=== PATIENT | male | born 1945 | race Caucasian/White ===

== ENCOUNTER 2017-06-03 11:21 | Outpatient (CLI) | payer MEDICARE, BC ==
--- NOTE | 2017-06-03 14:54 | CT ---
EXAM: CT ANGIOGRAM OF THE NECK: HISTORY: Right carotid stenosis. Decrease sound in the right carotid artery. COMPARISON: None. TECHNIQUE: CT angiogram of the neck is performed in the axial plane. Three-dimensional reformatted images are s ubmitted for interpretation. FINDINGS: Visualized brain parenchyma is unremarkable. Mucosal thickening of the left maxillary sinus is noted. There is extensive periodontal disease. The aerodigestive tract is patent. No mucosal abnormality. Epiglottis has a normal caliber. Preepi glottic fat is preserved. Symmetric attenuation of the parotid and submandibular glands. The thyroid gland is unremarkable. Symmetric attenuation of the sternocleidomastoid muscles. There are scattered nonspecific, nonenlarged bilateral soft tissue neck lymph nodes. Cervical spine vertebral body height is maintained. There is no fracture. There are varying degrees of central canal stenosis and foraminal narrowing on the basis of degenerative change. Upper mediastinum demonstrates nonspecific lymph nodes. There is adequate contrast opacification of the central pulmonary arteries without filling defect. Extensive emphysematous and bullous change of the lung parenchyma. Focal area of irregular parenchym al attenuation in the right lung apex may represent a scar measuring 1.4 cm x 1.2 cm. Other etiologi es cannot be excluded. Limited evaluation. CT ANGIOGRAM: There is atherosclerosis of the visualized aorta. RIGHT CAROTID: There is atherosclerotic disease at the origin of the right carotid artery. There is mild narrowing. The right common carotid artery demonstrates patency. There is calcified plaque in the right carot id bifurcation. There is short-segment severe stenosis with essentially a string sign in the proxima l right internal carotid artery. Mid to distal right internal carotid artery has appropriate enhance ment and luminal diameter. LEFT CAROTID: There is atherosclerosis at the origin of the left carotid artery. Left common carotid artery demons trates mild atherosclerotic disease. The left carotid bifurcation also has mild atherosclerotic dise ase. Mid to distal left internal carotid artery has appropriate enhancement and luminal diameter. VERTEBRAL ARTERIES: The origin of the right vertebral artery is patent. There is mild narrowing of the origin of the lef t vertebral artery. Both cervicovertebral arteries are patent throughout their course in the neck. Vertebral arteries are essentially codominant. Bilateral subclavian arteries are normal in caliber. IMPRESSION: High-grade short-segment stenosis is essentially a string sign in the proximal right internal carotid artery. CODE T POS: [facility]
== END 2017-06-03 11:22 | disposition home or self-care (01) ==
LOC: CT 11:21
PROVIDERS: ATTEND Thoracic Surgery (Cardiothoracic Vascular Surgery)
DX: I65.21 Occlusion and stenosis of right carotid artery (principal)
CPT/HCPCS: 70498

== ENCOUNTER 2017-06-08 06:05 | Inpatient (IN) | payer MEDICARE, BC ==
[2017-06-08] MEDS ORDERED: CEFAZOLIN/Water 2 GM/20 ML SYRINGE ONE (06:23)
[2017-06-08] MEDS ORDERED: Protamine Sulfate 50 MG/5 ML VIAL ONE (06:39)
[2017-06-08] MEDS ORDERED: Heparin 5,000 UNITS/ML VIAL ONE (06:39)
[2017-06-08 06:40] LABS: Mean Platelet Volume 7.4 fL (7.4-10.4); White Blood Cell (WBC) Count 8.4 thou/uL (4.8-10.8)
[2017-06-08] MEDS ORDERED: Fentanyl 250 MCG/5 ML VIAL ONE (06:56)
[2017-06-08 07:04] LABS: Anion Gap 14 mmol/L (10-20); BUN (Urea Nitrogen) 17 mg/dL (8.4-25.7); Calc. Creatinine Clearance 0 mL/min (70-130); Calcium 10.2 mg/dL (7.8-10.44); Carbon Dioxide 26 mmol/L (23-31); Chloride 103 mmol/L (98-107); Estimated GFR-MDRD 65
[2017-06-08] MEDS ORDERED: Midazolam HCl 2 mg/2 ml Vial ONE (07:13)
[2017-06-08] MEDS ORDERED: Fentanyl 100 MCG/2 ML VIAL ONE (09:58)
--- NOTE | 2017-06-08 10:01 | OP ---
DATE OF PROCEDURE: 06/08/2017 PREOPERATIVE DIAGNOSIS: Critical right carotid artery stenosis. SURGEON: Ammon Booker M.D. TREE PULLER: None. POSTOPERATIVE DIAGNOSIS: Critical right carotid artery stenosis. SPONGE AND NEEDLE COUNTS: Correct. ANESTHESIA: General. PROCEDURE: Right carotid endarterectomy with bovine pericardium patch angioplasty. FINDINGS AT OPERATION: Near occlusive plaque involving the bulb and proximal ICA. DESCRIPTION OF OPERATION: The patient was taken to the operating room. Following the induction of general endotracheal anesthesia, the patient was prepped and draped in usual sterile fashion. Skin incision was made parallel to the anterior border of the sternocleidomastoid muscle and deepened through the subcutaneous tissues and platysma. Carotid sheath was entered, identifying the vagus nerve in its proper posterior position. Isolation of the CCA, ECA, and ICA was performed. Hypoglossal nerve was visualized, however, not manipulated. Heparin dose was given. Fine vascular clamps were applied to the above-mentioned vessels. Arteriotomy was created extending across the bulb and ICA to a point above the plaque. The #10 shunt was employed. Endarterectomy was then performed in standard fashion. An excellent feathering point was achieved in the ICA, however, posterior intima was tacked with three 7-0 Prolene sutures. Meticulous attention was made to retrieving all residual debris including before and after irrigation with heparinized saline. The arteriotomy was then closed with the bovine pericardium patch and running 6-0 Prolene suture. Prior to securing the patch the shunt was removed, the ICA backflushed, and the site again irrigated with heparinized saline. Clamps were removed from the ECA, CCA, and ICA in that order. Heparin was partially reversed with protamine. Copious irrigation was performed. Meticulous hemostasis was assured. The wound was then closed in layers with running 2-0 Vicryl sutures and skin closed with a 4-0 Vicryl subcuticular stitch. Dermabond was applied. The patient was awakened and taken to the recovery room. Blood loss negligible. MTDD
[2017-06-08] MEDS ORDERED: HYDROcodone/Acetaminophen 5/325 mg Tablet PO PRN ×2 (12:10)
[2017-06-08] MEDS ORDERED: hydrALAZINE 20 MG/ML VIAL SLOW IVP PRN (12:10)
[2017-06-08] MEDS ORDERED: HYDROcodone/Acetaminophen 10/325 mg Tablet PO PRN (12:10)
[2017-06-08] MEDS ORDERED: Phenylephrine 10 MG/NS 250 ML 250 ML IVPB PRN (12:10)
[2017-06-08] MEDS ORDERED: Promethazine HCl 25 MG/ML VIAL IM PRN (12:10)
[2017-06-08] MEDS ORDERED: Fentanyl 100 MCG/2 ML VIAL SLOW IVP PRN ×2 (12:10)
[2017-06-08] MEDS ORDERED: Ondansetron HCl/PF 4 MG/2 ML Vial IVP PRN (12:10)
[2017-06-08] MEDS ORDERED: Acetaminophen 325 MG TAB PO PRN (12:10)
[2017-06-08] MEDS ORDERED: Nitroglycerin 50 MG/250 ML BOT 250 ML IVPB PRN (12:10)
[2017-06-08] MEDS ORDERED: DOPamine 400 MG/D5W 250 ML 250 ML IVPB PRN (12:10)
[2017-06-08] MEDS ORDERED: Morphine PF 1 MG/ML SYR IVP PRN (12:21)
[2017-06-08] MEDS ORDERED: Morphine 4 MG/ML VIAL SLOW IVP PRN (12:30)
[2017-06-08] MEDS ORDERED: Clopidogrel Bisulfate 75 MG TAB PO SCH (12:30)
[2017-06-08] MEDS: CEFAZOLIN/Water 2 GM/20 ML SYRINGE SLOW IVP SCH ×2 (12:43→20:00)
[2017-06-08] MEDS: Sodium Chloride 0.9% 1,000 ML IV SCH (12:44)
[2017-06-08 12:52] VITALS: BMI 23.3
[2017-06-08] MEDS ORDERED: Ondansetron HCl/PF 4 MG/2 ML Vial ONE (13:33)
[2017-06-08] MEDS ORDERED: Glycopyrrolate 0.2 MG/ML 5 ML SYRINGE ONE (13:33)
[2017-06-08] MEDS ORDERED: Lidocaine 1% PF 5 ML VIAL ONE (13:33)
[2017-06-08] MEDS ORDERED: Vecuronium 10 MG VIAL ONE (13:33)
[2017-06-08] MEDS ORDERED: ePHEDrine/0.9% NaCl/PF SYRINGE 50 mg/10 ml ONE (13:33)
[2017-06-08] MEDS ORDERED: PHENYLEPHRINE-NS 100 MCG/ML 10 ML SYRINGE ONE (13:33)
[2017-06-08] MEDS ORDERED: Propofol 200 MG/20 ML VIAL ONE (13:33)
[2017-06-08] MEDS ORDERED: Heparin 10,000 UNITS/ 10 ML VIAL ONE (13:33)
[2017-06-08] MEDS ORDERED: ALPRAZolam 0.25 MG TAB PO PRN (14:03)
[2017-06-08] MEDS: Gabapentin 300 MG CAP PO SCH (20:00)
[2017-06-08] MEDS: Carvedilol 6.25 MG TAB PO SCH (20:00)
[2017-06-08] MEDS ORDERED: Latanoprost 0.005% Ophth Soln 2.5 ml Bottle EA EYE SCH (21:00)
[2017-06-08] MEDS ORDERED: Atorvastatin Calcium 40 MG TAB PO SCH (21:00)
[2017-06-09] MEDS: Sodium Chloride 0.9% 1,000 ML IV SCH (01:45)
[2017-06-09] MEDS: CEFAZOLIN/Water 2 GM/20 ML SYRINGE SLOW IVP SCH (04:42)
[2017-06-09 07:38] VITALS: TEMP 97.6
[2017-06-09] MEDS: Carvedilol 6.25 MG TAB PO SCH (08:42)
[2017-06-09] MEDS: Gabapentin 300 MG CAP PO SCH (08:43)
[2017-06-09 08:44] VITALS: BP 114/55
[2017-06-09] MEDS ORDERED: Bisoprolol Fumarate/HCTZ 5 mg/6.25 mg Tablet PO SCH (09:00)
[2017-06-09] MEDS ORDERED: Clopidogrel Bisulfate 75 MG TAB PO SCH (09:00)
[2017-06-09] MEDS ORDERED: Ubidecarenone 50 MG CAP PO SCH (09:00)
[2017-06-09] MEDS ORDERED: Fish Oil 1,000 MG CAP PO SCH (09:00)
--- NOTE | 2017-06-09 11:48 | DIS ---
REASON FOR ADMISSION: Right carotid endarterectomy. CLINICAL RESUME: The patient is a 71-year-old male found to have a critical right carotid artery stenosis following the detection of a right carotid bruit. Carotid ultrasound and CTA demonstrated the critical right carotid lesion. Recommendation was made to proceed with right CEA. Yesterday, the patient was admitted and underwent right CEA with bovine pericardium patch angioplasty. See operative report for details. His postoperative course has been unremarkable and as of this morning, he was considered stable for discharge. Follow up will be arranged in our office in 2 weeks or sooner p.r.n. DIET: Cardiac prudent. ACTIVITY: Light for the next 4-5 days. WOUND CARE: As instructed. DISCHARGE MEDICATIONS: The patient was to resume his complete home regimen without change. New medication; Plavix 75 mg daily for 1 month. MTDD
== END 2017-06-09 11:30 | disposition home or self-care (01) | DRG 39 ==
LOC: EDSTATUS 06:05 → SURG A 06:05 → CCU 11:30
PROVIDERS: ADMIT Thoracic Surgery (Cardiothoracic Vascular Surgery); ATTEND Thoracic Surgery (Cardiothoracic Vascular Surgery)
PROC: 03CH0ZZ Extirpation of Matter from Right Common Carotid Artery, Open Approach (ICD-10-PCS; principal; 2017-06-08)
PROC: 03UJ0KZ Supplement Left Common Carotid Artery with Nonautologous Tissue Substitute, Open Approach (ICD-10-PCS; 2017-06-08)
DX: I65.21 Occlusion and stenosis of right carotid artery (principal); I10 Essential (primary) hypertension; I71.4 Abdominal aortic aneurysm, without rupture; I25.10 Atherosclerotic heart disease of native coronary artery without angina pectoris; I70.213 Atherosclerosis of native arteries of extremities with intermittent claudication, bilateral legs; E78.2 Mixed hyperlipidemia; H40.9 Unspecified glaucoma; I25.2 Old myocardial infarction; Z82.49 Family history of ischemic heart disease and other diseases of the circulatory system; Z80.9 Family history of malignant neoplasm, unspecified
CPT/HCPCS: 80048; 85027; 93005; 93010; 94640; J1642; J1644; J2001; J2250; J2405; J2704; J2720; J3010; J7620

== ENCOUNTER 2018-07-16 06:18 | Outpatient (CLI) | payer MEDICARE, BC ==
[2018-07-16 10:38] LABS: #Basophils 0.1 thou/uL (0.0-0.2); #Eosinphils 0.2 thou/uL (0.0-0.7); #Lymphocytes 2.5 thou/uL (1.20-3.40); #Monocytes 0.6 thou/uL (0.11-0.59); #Neutrophils 3.4 thou/uL (1.40-6.50); %Basophils 0.8 % (0.0-1.0); %Eosinophils 3.6 % (0.0-10.0); %Lymphocytes 36.4 % (21.0-51.0); %Monocytes 9.1 % (0.0-10.0); %Neutrophils 50.1 % (42.0-75.0); Hemoglobin 14.2 g/dL (14.0-18.0); Mean Corpuscular HGB CONC 33.6 g/dL (32.0-36.0); Mean Corpuscular Hemoglobin 30.3 pg (27.0-31.0); Mean Corpuscular Volume 90.1 fL (78.0-98.0); Platelet Count 197 thou/uL (130-400); RBC Distribution Width 12.7 % (11.5-14.5); White Blood Cell (WBC) Count 6.8 thou/uL (4.8-10.8)
[2018-07-16 11:01] LABS: Anion Gap 15 mmol/L (10-20); BUN (Urea Nitrogen) 28 mg/dL (8.4-25.7); Calc. Creatinine Clearance 0 mL/min (70-130); Calcium 9.7 mg/dL (7.8-10.44); Carbon Dioxide 23 mmol/L (23-31); Chloride 104 mmol/L (98-107); Estimated GFR-MDRD 52; Glucose 89 mg/dL (83-110); Potassium 4.6 mmol/L (3.5-5.1); Sodium 137 mmol/L (136-145)
== END 2018-07-16 06:19 | disposition home or self-care (01) ==
LOC: LABBT 06:18
PROVIDERS: ATTEND Neurological Surgery
DX: Z01.818 Encounter for other preprocedural examination (principal); M48.061 Spinal stenosis, lumbar region without neurogenic claudication
CPT/HCPCS: 80048; 85025; 93005; 93010

== ENCOUNTER 2018-07-19 08:04 | Day surgery (SDC) | payer MEDICARE, BC ==
[2018-07-16 09:30] VITALS: BMI 22.6
--- NOTE | 2018-07-18 21:05 | HP ---
HISTORY OF PRESENT ILLNESS: Mr. Phillips is a 72-year-old man referred to us for severe symptoms of neurogenic claudication. He walks in stooped gait and feels his legs are weak over time and tire quickly when walking. He has been receiving epidural steroid injections with and while they do help, they are losing efficacy and June 2017 reveals severe critical canal stent narrowing from L3-L5 with lateral recess stenosis at L5-S1, also doing well with his symptoms. PAST MEDICAL HISTORY: Significant for cataracts, hypercholesterolemia, coronary artery disease, hypertension, osteoarthritis, and CVA. PAST SURGICAL HISTORY: Coronary stents and carotid endarterectomy. HOME MEDICATIONS: 1. Ackworth. 2. Bisoprolol. 3. Carvedilol. 4. Travatan. 5. Aspirin 81 mg. 6. Aleve. 7. Gabapentin. ALLERGIES: NO KNOWN DRUG ALLERGIES. PHYSICAL EXAMINATION: GENERAL: The patient is alert and oriented x3. Gait is severely antalgic and slowed with stooped posture. ASSESSMENT: Lumbar spinal stenosis with neurogenic claudication. PLAN: Dr. Thompson met with the patient, reviewed imaging and advocated for an L3-S1 decompression. We explained to the patient the risks, benefits, and alternatives of the procedure. The patient expressed understanding and elected to move forward with the surgery as discussed. I do believe the patient is mentally competent and capable of making medical decisions for himself. We will move forward with surgery as planned. Job ID: [id number]
[2018-07-19] MEDS ORDERED: MEROPENEM 1 GM/50 ML 1 GM in Premix Bag 1 BAG IVPB SCH (09:30)
[2018-07-19] MEDS ORDERED: Bupivacaine HCl 0.5%/Epinephrine 1:200,000/PF 30 ml Vial ONE (10:07)
[2018-07-19] MEDS ORDERED: CEFAZOLIN 2 GM/50 ML BAG ONE ×2 (10:43→13:58)
[2018-07-19] MEDS ORDERED: Fentanyl 100 MCG/2 ML VIAL ONE ×2 (10:56→12:48)
[2018-07-19] MEDS ORDERED: HYDROmorphone 2 MG/ML VIAL ONE (12:57)
[2018-07-19] MEDS ORDERED: PHENYLEPHRINE-NS 100 MCG/ML 10 ML SYRINGE ONE (13:25)
[2018-07-19] MEDS ORDERED: PROPOFOL 200 MG/20 ML VIAL ONE (13:25)
[2018-07-19] MEDS ORDERED: Ondansetron PF 4 MG/2 ML Vial ONE (13:25)
[2018-07-19] MEDS ORDERED: ePHEDrine/0.9% NaCl/PF SYRINGE 50 mg/10 ml ONE (13:25)
[2018-07-19] MEDS ORDERED: Glycopyrrolate 0.2 MG/ML 5 ML SYRINGE ONE (13:25)
[2018-07-19] MEDS ORDERED: Succinylcholine Chloride 20 MG/ML 10 ml SYRINGE FS ONE (13:25)
[2018-07-19] MEDS ORDERED: HYDROcodone/Acetaminophen 5/325 mg Tablet ONE (15:25)
--- NOTE | 2018-07-20 13:15 | OP ---
DATE OF PROCEDURE: 07/19/2018 HAND EDGER: Guillermo Gomez PA-C INDICATION: Pain. DIAGNOSIS: Lumbar stenosis. PROCEDURES: L3 through S1 lumbar decompression. ANESTHESIA: General. DESCRIPTION OF PROCEDURE: The patient was brought into the operating room and placed under anesthesia. He was flipped from supine to a prone position on the operating room table. A linear incision was planned from L3 through S1. After prepping and draping and after preoperative pause, the incision was created. The soft tissues were swept away from midline. A self-retaining retractor was placed and a C-arm image was obtained to confirm the appropriate levels. After confirming the appropriate level, decompression was performed extending from the inferior aspect of L3 through the superior aspect of S1. A high-speed cutting drill bit as well as 2, 3, and 4 mm Kerrisons were used to perform a decompression at these segments. After decompressing the segment from L3 through S1, the wound was irrigated. Hemostasis was maintained throughout. The wound was then closed in anatomic layers and a pressure dressing was applied. There were no known procedural complications. Job ID: [id number]
== END 2018-07-19 16:00 | disposition home or self-care (01) ==
LOC: SDC 08:04
PROVIDERS: ATTEND Neurological Surgery
PROC: 01NB0ZZ Release Lumbar Nerve, Open Approach (ICD-10-PCS; principal; 2018-07-19)
DX: M48.061 Spinal stenosis, lumbar region without neurogenic claudication (principal); M48.062 Spinal stenosis, lumbar region with neurogenic claudication; I25.10 Atherosclerotic heart disease of native coronary artery without angina pectoris; I10 Essential (primary) hypertension; I25.5 Ischemic cardiomyopathy; E78.00 Pure hypercholesterolemia, unspecified; M19.90 Unspecified osteoarthritis, unspecified site; F17.210 Nicotine dependence, cigarettes, uncomplicated; Z86.73 Personal history of transient ischemic attack (TIA), and cerebral infarction without residual deficits; Z95.5 Presence of coronary angioplasty implant and graft; Z95.1 Presence of aortocoronary bypass graft; Z79.82 Long term (current) use of aspirin; Z79.899 Other long term (current) drug therapy; Z98.890 Other specified postprocedural states
CPT/HCPCS: 76000; 96374; J0670; J1170; J2185; J2405; J2704; J3010